=== PATIENT | male | born 1955 | race Caucasian/White ===

== ENCOUNTER 2017-11-07 22:47 | Emergency (ER) ==
[2017-11-07 23:15] VITALS: BP 140/76; TEMP 96; BMI 26.9
[2017-11-07] MEDS ORDERED: NORCO 7.5-325 PO STA (23:37)
[2017-11-07] MEDS ORDERED: MOTRIN PO STA (23:38)
--- NOTE | 2017-11-07 23:44 | ED.PDOC ---
General ED Provider: Dr. GEORGE DILLARD Chief Complaint: Extremity Swelling/Pain Stated Complaint: patient is a 62 year old male who is otherwise healthy. Works out every day. Thinks he may have over done his activities over the last few days. Today He felt swelling and pain on the left thigh. which has started getting better with rest. Denies any personal or family history of Blood clots. Has had prior hamsting injury on the posterior left leg for which he sees a chiropractor. He states that he has been trying some Electric Meter Repairer for it and was told to try epson salts but has not helped. Time Seen by Physician: 23:39 Mode of Arrival: Walk-In Information Source: Patient Nursing and Triage Documentation Reviewed and Agree: Yes Reviewed sepsis parameters & appropriate labs ordered?: Yes System Inflammatory Response Syndrome: Not Applicable Sepsis Protocol: For patient's 13 years and over: Temp is 96.8 and below OR 101 and greater Pulse >90 BPM Resp >20/minute Acutely Altered Mental Status Are patient's symptoms suggestive of a new infection, such as: -Pneumonia -Skin, Soft Tissue -Endocarditis -UTI -Bone, Joint Infection -Implantable Device -Acute Abdominal Infection -Wound Infection -Meningitis -Blood Stream Catheter Infection -Unknown System Inflammatory Response Syndrome: Not Applicable Review of Systems - Review Of Systems Constitutional: Reports: No symptoms Eyes: Reports: No symptoms Ears, Nose, Mouth, Throat: Reports: No symptoms Respiratory: Reports: No symptoms Cardiac: Reports: No symptoms GI: Reports: No symptoms : Reports: No symptoms Musculoskeletal: Reports: Muscle pain (and swelling on the left thigh) Skin: Reports: No symptoms Neurological: Reports: Anxiety Endocrine: Reports: No symptoms Hematologic/Lymphatic: Reports: No symptoms All Other Systems: Reviewed and Negative Past Medical History - Past Medical History Previously Healthy: Yes Endocrine: Reports: None Cardiovascular: Reports: None Respiratory: Reports: None Hematological: Reports: None Gastrointestinal: Reports: None Genitourinary: Reports: None Neuro/Psych: Reports: None Musculoskeletal: Reports: Arthritis Cancer: Reports: None - Surgical History General Surgical History: Reports: Other (left knee cap surgery ) - Family History Family History: Reports: Unknown - Social History Smoking Status: Former smoker Hx Substance Use: No Alcohol Screening: Occasionally 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 Lives: With family - Immunizations Tetanus Shot up to Date: No Physical Exam - Physical Exam Appearance: Ill-appearing Ill-appearing: Mild Pain Distress: Severe Neck: Supple Respiratory: Airway patent, Breath sounds clear, Breath sounds equal, Respirations nonlabored Cardiovascular: RRR, Pulses normal, No rub, No murmur, Bradycardia Critical Care Note - Critical Care Note Total Time (mins): 0 Course - Course Hematology/Chemistry: 11/07/17 23:45 11/07/17 23:45 Orders, Labs, Meds: Lab Review 11/07/17 11/07/17 11/07/17 23:45 23:45 23:45 WBC 7.08 RBC 4.05 L Hgb 12.3 L Hct 35.5 L MCV 87.7 MCH 30.4 MCHC 34.6 RDW Coeff of [place] 12.6 Plt Count 115 L Immature Gran % (Auto) 0.3 Neut % (Auto) 61.3 Lymph % (Auto) 28.4 [place] % (Auto) 7.2 Eos % (Auto) 2.4 Baso % (Auto) 0.4 Immature Gran # (Auto) 0.0 Neut # (Auto) 4.3 Lymph # (Auto) 2.0 [place] # (Auto) 0.5 Eos # (Auto) 0.2 Baso # (Auto) 0.0 D-Dimer (Manual) 333.67 Sodium 139 Potassium 4.3 Chloride 106 Carbon Dioxide 23 Anion Gap 14.3 BUN 19 H Creatinine 0.99 Estimated GFR (MDRD) 77.00 BUN/Creatinine Ratio 19.19 Glucose 99 Calcium 8.9 Magnesium 2.1 Total Bilirubin 0.4 AST 23 ALT 15 Alkaline Phosphatase 63 Total Creatine Kinase 165 CK-MB (CK-2) 2.9 CK-MB (CK-2) % 1.05758 Total Protein 6.6 Albumin 3.7 Globulin 2.9 Albumin/Globulin Ratio 1.28 Orders Category Date Time Status CBC W/ AUTO DIFF Stat LAB 11/07/17 23:45 Completed COMPREHENSIVE METABOLIC PANEL Stat LAB 11/07/17 23:45 Completed CPK [CREATINE KINASE] Stat LAB 11/07/17 23:45 Completed D-DIMER Stat LAB 11/07/17 23:45 Completed MAGNESIUM Stat LAB 11/07/17 23:45 Completed Hydrocodone Bit/Acetaminophen [[place] 7.5-325] MEDS 11/07/17 23:37 Discontinued 1 tab PO ONCE STA Ibuprofen [Motrin] MEDS 11/07/17 23:38 Discontinued 400 mg PO ONCE STA Medications Discontinued Medications Generic Name Dose Route Start Last Admin Trade Name Freq PRN Reason Stop Dose Admin Hydrocodone Bitart/Acetaminophen 1 tab 11/07/17 23:37 11/07/17 23:46 [place] 7.5-325 PO 11/07/17 23:38 1 tab ONCE STA Administration Ibuprofen 400 mg 11/07/17 23:38 11/07/17 23:46 Motrin PO 11/07/17 23:39 400 mg ONCE STA Administration Vital Signs: Temp Pulse Resp BP Pulse Ox 11/07/17 22:48 96 F L 44 L 18 140/76 98 Departure - Departure Time of Disposition: 00:33 Disposition: HOME SELF-CARE Discharge Problem: Muscle strain of left thigh Qualifiers: Encounter type: initial encounter Qualified Code(s): S76.912A - Strain of unspecified muscles, fascia and tendons at thigh level, left thigh, initial encounter Instructions: Muscle Strain (ED) Condition: Stable Pt referred to PMD for follow-up: Yes IPMP verified?: Yes Additional Instructions: Rest, ICE, Gentle stretching. Take pain medications as prescribed. Follow up with PCP in 3-5 days. Prescriptions: Hydrocodone/Acetaminophen [[place] 5-325 Tablet] 1 tab PO Q6HR PRN #12 tablet PRN Reason: PAIN Ibuprofen [Motrin] 600 mg PO Q6H PRN #30 tablet PRN Reason: Analgesia Allergies/Adverse Reactions: Allergies bee venom protein (honey bee) Adverse Reaction (Verified 11/07/17 22:59) Home Medications: Ambulatory Orders Hydrocodone/Acetaminophen [[place] 5-325 Tablet] 1 tab PO Q6HR PRN #12 tablet Ibuprofen [Motrin] 600 mg PO Q6H PRN #30 tablet 11/08/17 Disposition Discussed With: Patient, Family
== END 2017-11-08 00:54 | disposition home or self-care (01) ==
LOC: ED 22:47
DX: S76.912A Strain of unspecified muscles, fascia and tendons at thigh level, left thigh, initial encounter (principal); X50.1XXA Overexertion from prolonged static or awkward postures, initial encounter
CPT/HCPCS: 36415; 80053; 82550; 82553; 83735; 85025; 85379; 99283